=== PATIENT | female | born 2005 | race Native Hawaiian/Other Pacific Islander ===

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

== ENCOUNTER 2023-01-27 10:51 | Outpatient (CLI) | payer BC | END 2023-01-27 19:27 | disposition home or self-care (01) | LOC: US 10:51 | PROVIDERS: ATTEND Nurse Practitioner Family | DX: N63.11 Unspecified lump in the right breast, upper outer quadrant (principal) ==